=== PATIENT | male | born 1990 | race Caucasian/White ===

== ENCOUNTER 2018-03-27 13:40 | Emergency (ER) | payer MEDICAID ==
[~2018-03-27] VITALS: Ht 172.7 cm; Wt 72.5 kg
[2018-03-27] MEDS ORDERED: PROPOFOL 1% 20 ML VIAL IVP ONE (13:42)
[2018-03-27] MEDS ORDERED: SUCCINYLCHOLINE CHLORIDE 20 MG/ML 10 ML VIAL IVP ONE (13:42)
[2018-03-27] MEDS ORDERED: FLUMAZENIL 0.1 MG/ML 5 ML VIAL IVP ONE (13:56)
[2018-03-27] MEDS ORDERED: NALOXONE HCL 1 MG/ML 2 ML SYG ONE (13:56)
[2018-03-27] MEDS: MIDAZOLAM HCL 2 MG/2 ML VIAL IVP ONE ×2 (14:12→15:06)
[2018-03-27] MEDS: FentaNYL CITRATE-PF 100 MCG/2 ML VIAL IVP ONE ×2 (14:12→15:06)
[2018-03-27] MEDS ORDERED: ETOMIDATE 2 MG/ML 10 ML VIAL ONE (14:18)
[2018-03-27] MEDS: ETOMIDATE 2 MG/ML 10 ML VIAL IVP ONE (15:06)
[2018-03-27 17:00] VITALS: BP 121/80
== END 2018-03-27 17:56 | disposition home or self-care (01) ==
LOC: EMS 13:41
DX: S43.004A Unspecified dislocation of right shoulder joint, initial encounter (principal); F17.210 Nicotine dependence, cigarettes, uncomplicated; X58.XXXA Exposure to other specified factors, initial encounter; Y93.67 Activity, basketball; Y92.89 Other specified places as the place of occurrence of the external cause; Y99.8 Other external cause status
CPT/HCPCS: 23650; 73030; 96374; 96375; 99152; 99285; J0330; J2250; J2704; J3010; J3490; 96376; J2310

== ENCOUNTER 2018-09-01 05:41 | Emergency (ER) | payer MEDICAID ==
[~2018-09-01] VITALS: Ht 180.3 cm; Wt 68.2 kg
[2018-09-01] MEDS ORDERED: MORPHINE SULFATE 4 MG/ML SYRINGE IVP ONE (06:15)
[2018-09-01] MEDS ORDERED: ONDANSETRON HCL 4 MG/2 ML VIAL IVP ONE (06:15)
[2018-09-01] MEDS ORDERED: LORazepam 2 MG/ML VIAL IVP ONE (06:30)
[2018-09-01] MEDS ORDERED: LIDOCAINE 1% 10 ML VIAL INJ ONE (06:30)
[2018-09-01] MEDS ORDERED: ETOMIDATE 2 MG/ML 10 ML VIAL ONE (06:59)
[2018-09-01] MEDS ORDERED: ETOMIDATE 2 MG/ML 10 ML VIAL IVP ONE (08:30)
[2018-09-01] MEDS ORDERED: LIDOCAINE/PF 1% 2 ML VIAL IM ONE (09:30)
[2018-09-01] MEDS ORDERED: AZITHROMYCIN 250 MG TABLET PO ONE (09:30)
[2018-09-01] MEDS ORDERED: CefTRIAXone SODIUM 1 GM/VIAL IM ONE (09:30)
[2018-09-01 09:57] VITALS: BP 109/69
== END 2018-09-01 10:04 | disposition home or self-care (01) ==
LOC: EMS 05:44
DX: S43.004A Unspecified dislocation of right shoulder joint, initial encounter (principal); F17.210 Nicotine dependence, cigarettes, uncomplicated; W06.XXXA Fall from bed, initial encounter; Y93.89 Activity, other specified; Y92.89 Other specified places as the place of occurrence of the external cause; Y99.8 Other external cause status
CPT/HCPCS: 23650; 73030; 87491; 87591; 96372; 96374; 96375; 99285; J0696; J2060; J2270; J2405; J3490 ×3; 29240

== ENCOUNTER 2018-09-26 11:46 | Emergency (ER) | payer MEDICAID ==
[~2018-09-26] VITALS: Ht 180.3 cm; Wt 65.9 kg
[2018-09-26 15:45] VITALS: BP 110/68
== END 2018-09-26 15:52 | disposition home or self-care (01) ==
LOC: EMS 11:48
DX: B86 Scabies (principal); F12.90 Cannabis use, unspecified, uncomplicated; F17.210 Nicotine dependence, cigarettes, uncomplicated